=== PATIENT | male | born 1930 | race Caucasian/White ===

== ENCOUNTER 2017-10-24 14:45 | Observation (INO) | payer MEDICARE, OTHER ==
[2017-10-24 15:09] LABS: Base Excess-Venous -7.2 mmol/L (0 (+/- 2.5)); Bicarbonate (HCO3v) 17.3 mmol/L (1.0-85.0); CO2 Tension (PvCO2) 30.7 mmHg (41.0-51.0); Calcium, Ionized 0.95 mmol/L (1.12-1.32); Hemoglobin - Calc 10.4 g/dL (12.0-18.0); Lactate 3.37 mmol/L (0.50-2.20); O2 Tension (PvO2) 50.1 mmHg (35.0-45.0); Potassium 3.7 mmol/L (3.4-4.7); T. Carbon Dioxide 18.3 mmol/L (1.0-85.0); vO2 Saturation-calc 84.3 % (94-98)
[2017-10-24 15:21] LABS: Hemoglobin 12.9 g/dL (14.0-18.0); Mean Corpuscular HGB CONC 33.5 g/dL (32.0-36.0); Mean Platelet Volume 7.1 fL (7.4-10.4); Platelet Count 143 thou/uL (130-400); White Blood Cell (WBC) Count 9.8 thou/uL (4.8-10.8)
--- NOTE | 2017-10-24 15:31 | CT ---
CT OF BRAIN PERFORMED WITHOUT CONTRAST ENHANCEMENT: Date: 10/24/17 HISTORY: Syncopal episode with head injury. COMPARISON: 07/11/06 study, which showed extensive facial trauma. FINDINGS: There is generalized ventricular and sulcal prominence. There are no signs of intracerebral hemorrhag e or extra-axial fluid collections. Mastoid air cells are clear. There is an air fluid level within t he visualized portion of the right maxillary sinus. IMPRESSION: No acute intracranial abnormalities. POS: [facility]
[2017-10-24 15:38] LABS: Band 3 % (5-11); Burr Cells SLIGHT = 2-5 cells (100X) (0-1/hpf); Eosinophils 1 % (0-10); Lymphocytes 23 % (21-51); MDiff Complete? YES; Monocytes 6 % (0-10); Neutrophil 65 % (42-75); Ovalocytes SLIGHT = 2-5 cells (100X) (0-1/hpf); PLT Morphology Comment Appears Adequate; Polychromasia SLIGHT = 2-3 cells (100X) (0-2/hpf); Reactive Lymphocytes 2 % (0-10)
[2017-10-24 15:39] LABS: ALT (SGPT) 20 U/L (8-55); AST (SGOT) 23 U/L (5-34); Albumin 3.5 g/dL (3.4-4.8); Alkaline Phosphatase 48 U/L (40-150); Anion Gap 12 mmol/L (10-20); BUN (Urea Nitrogen) 35 mg/dL (8.4-25.7); Bilirubin, Total 0.9 mg/dL (0.2-1.2); Calc. Creatinine Clearance 0 mL/min (70-130); Calcium 8.3 mg/dL (7.8-10.44); Carbon Dioxide 22 mmol/L (23-31); Chloride 110 mmol/L (98-107); Estimated GFR-MDRD 45; Globulin 2.5 g/dL (2.4-3.5); Glucose 98 mg/dL (83-110); Lipase 22 U/L (8-78); Potassium 4.3 mmol/L (3.5-5.1); Sodium 140 mmol/L (136-145)
[2017-10-24 15:43] LABS: CKMB 1.3 ng/mL (0-6.6); Troponin I 0.014 ng/mL (< 0.028)
--- NOTE | 2017-10-24 15:50 | CT ---
CT ANGIO CHEST AND ABDOMEN PERFORMED WITH IV CONTRAST ENHANCEMENT WITH 3D RECONSTRUCTIONS: Date: 10/24/17 HISTORY: Patient had a syncopal episode and collapse, dizziness, and incontinence with syncope, and hypotensio n. FINDINGS: The lungs are clear of any infiltrative process. There is some linear scarring or atelectasis in the lung bases. No pulmonary nodules. No significant mediastinal or hilar adenopathy. The aorta is tortuous. The ascending aorta is normal in caliber with an AP dimension of approximately 3.7 cm. Just distal to the takeoff of the left subclavian, the aorta is slightly aneurysmal in appea sarah, measuring approximately 4.4 cm, with some fairly prominent thrombus along mainly the posterior wall and calcification of the wall. The aorta tapers more distally to a more normal caliber of appro ximately 2.9 cm. There is no dissection seen associated with these findings. There is evidence of col lateralization of flow related to the left arm injection. The patient does have a left-sided internal defibrillator device. These findings would suggest subclavian or brachiocephalic vein narrowing. The liver, spleen, and pancreas regions appear unremarkable given limitations of angiographic study. Gallbladder has been removed. Right and left adrenal glands are normal in appearance. There is a nonobstructing upper pole punctate right renal calculus. Hypodensities involving both kidneys are statistically almost likely cysts. Th e largest of these is a lower pole right renal cyst measuring approximately 7.0 cm. There is no significant periaortic or mesenteric lymphadenopathy. The abdominal aorta is normal in caliber. There is some moderate atherosclerotic disease seen. There is no aneurysm or dissection demonstrated. Sigmoid diverticulosis is partially visualized on this nohemy dy. IMPRESSION: 1. 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 No dissection demonstr ated. 2. Bilateral renal cysts. 3. Nonobstructing upper pole right renal calculus. 4. Postop cholecystectomy change. 5. Sigmoid diverticulosis. POS: [facility]
[2017-10-24 17:30] LABS: Bilirubin Negative (Negative); Blood, Urine Negative (Negative); Clarity CLEAR (Clear); Glucose, Urine (Dipstick) Negative (Negative); Leukocyte Negative (Negative); Nitrite Negative (Negative); Protein, Urine (Dipstick) Negative (Neg-Trace); Specific Gravity, Urine 1.045 (1.002-1.036); pH, Urine 5.5 (5.0-9.0)
[2017-10-24] MEDS ORDERED: ISOVUE-370 76%-LOCM 1 ML ONE (18:23)
[2017-10-24] MEDS ORDERED: Acetaminophen 325 MG TAB PO PRN (18:39)
[2017-10-24] MEDS ORDERED: Ondansetron ODT 4 MG TAB PO PRN (18:39)
[2017-10-24] MEDS ORDERED: Ondansetron PF 4 MG/2 ML Vial IVP PRN (18:39)
[2017-10-24 18:41] VITALS: BMI 31.3
[2017-10-24 18:51] LABS: Lactic Acid 1.5 mmol/L (0.5-2.2)
[2017-10-24 19:00] LABS: Troponin I 0.011 ng/mL (< 0.028)
[2017-10-24] MEDS ORDERED: Enoxaparin Sodium 30 MG/0.3 ML SYRINGE SC SCH (19:00)
[2017-10-24 19:32] LABS: CKMB 1.4 ng/mL (0-6.6)
[2017-10-24] MEDS: Carvedilol 6.25 MG TAB PO SCH (20:47)
[2017-10-24] MEDS: Famotidine 20 MG TAB PO SCH (20:47)
[2017-10-24] MEDS ORDERED: Simvastatin 40 MG TAB PO SCH (21:00)
[2017-10-25 03:16] LABS: #Lymphocytes 1.8 thou/uL (1.20-3.40); #Neutrophils 7.2 thou/uL (1.40-6.50); %Basophils 0.2 % (0.0-1.0); %Eosinophils 0.3 % (0.0-10.0); %Lymphocytes 17.4 % (21.0-51.0); %Monocytes 10.2 % (0.0-10.0); %Neutrophils 71.9 % (42.0-75.0); Hemoglobin 12.4 g/dL (14.0-18.0); Mean Corpuscular HGB CONC 33.3 g/dL (32.0-36.0); Mean Platelet Volume 7.3 fL (7.4-10.4); Platelet Count 130 thou/uL (130-400); RBC Distribution Width 13.1 % (11.5-14.5); Red Blood Cell (RBC) Count 3.63 mill/uL (4.70-6.10); White Blood Cell (WBC) Count 10.1 thou/uL (4.8-10.8)
[2017-10-25 03:51] LABS: Anion Gap 9 mmol/L (10-20); BUN (Urea Nitrogen) 29 mg/dL (8.4-25.7); Calc. Creatinine Clearance 65 mL/min (70-130); Calcium 8.2 mg/dL (7.8-10.44); Carbon Dioxide 23 mmol/L (23-31); Cardiac Risk 2.8 (Less than 4.5); Chloride 114 mmol/L (98-107); Cholesterol 101 mg/dl (< 200 Desired); Estimated GFR-MDRD 59; Glucose 100 mg/dL (83-110); HDL Cholesterol 36 mg/dL (>60 Neg Risk); LDL Cholesterol, Calculated 52 mg/dL; Potassium 4.4 mmol/L (3.5-5.1); Sodium 142 mmol/L (136-145); Triglycerides 64 mg/dL (Less than 150)
[2017-10-25 03:54] LABS: CKMB 1.1 ng/mL (0-6.6); Troponin I 0.018 ng/mL (< 0.028)
[2017-10-25] MEDS ORDERED: Levothyroxine Sodium 75 MCG TAB PO SCH (06:00)
[2017-10-25] MEDS: Carvedilol 6.25 MG TAB PO SCH (08:29)
[2017-10-25] MEDS: Famotidine 20 MG TAB PO SCH (08:29)
[2017-10-25] MEDS ORDERED: Aspirin 325 MG TAB PO SCH (09:00)
[2017-10-25 12:01] VITALS: BP 106/55; TEMP 98.4
--- NOTE | 2017-10-25 17:00 | HP ---
DATE OF ADMISSION: 10/24/2017 TIME OF SERVICE: 1820 hours. PRIMARY CARE PHYSICIAN: Dr. Gambino. PRIMARY RADAR MECHANIC: Dr. Fonseca. CHIEF COMPLAINT: Syncope. HISTORY OF PRESENT ILLNESS: Mr. Christian is a pleasant 87-year-old male with a history of coronary artery disease status post MD x2, status post CABG x3 and AICD placed in 2008. He also has hypertension, hypothyroidism, hyperlipidemia. 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 He purposely did not take his Lasix today as he was traveling. Patient stated he was feeling somewhat funny and actually pulled over. I asked his girlfriend to drive and as he walked around to the back of the truck, he syncopized and fell out. He did lose control of his bowels, but no tongue biting, no bladder incontinence, no tonic clonic activity and no postictal phase. EMS was called. He was brought to the emergency department for evaluation. On their initial arrival and on arrival to the emergency department, he was hypotensive at 76/62. Rest of his workup was unremarkable. He did receive 4 liters of IV fluids. His blood pressure normalized and we were called for admission. He had no chest pain, shortness of breath, nausea, vomiting, fever, chills, diarrhea, constipation. No other current complaints. PAST MEDICAL HISTORY: 1. Hyperlipidemia. 2. Hypothyroidism. 3. Hypertension, essential. 4. Coronary artery disease status post MD in 2008 x2. PAST SURGICAL HISTORY: 1. AICD placement in 2008. 2. CABG x3 in 2008. 3. Bilateral TKA. 4. Back surgery x3. HOME MEDICATIONS: 1. Zocor 80 mg p.o. at bedtime. 2. Potassium citrate 10 mEq p.o. daily. 3. [place] 3 daily. 4. Levothyroxine 75 mcg daily. 5. Lasix 20 mg p.o. q.a.m. 6. Coreg 6.25 mg p.o. b.i.d. 7. Aspirin 325 mg daily. 8. Centrum Complete 1 tablet daily. ALLERGIES: NKDA. FAMILY HISTORY: Negative for clotting or bleeding disorder. No immune dysfunction. SOCIAL HISTORY: Negative for habits x3 except for occasional social alcohol. REVIEW OF SYSTEMS: All systems reviewed and negative except as stated as per HPI. PHYSICAL EXAMINATION: VITAL SIGNS: Temperature 97.5, pulse 65, blood pressure initially 76/52, respiratory rate 18, sat 98% on room air, blood pressure now 113/75. GENERAL: He is awake. He is alert and he is oriented x3, elderly white male, appears age appropriate, is in no acute distress. HEENT: Normocephalic, atraumatic. Pupils are equal, round, react to light bilaterally. Mucous membranes moist. There was bleeding, no thrush. NECK: Supple. No lymphadenopathy, JVD or thyromegaly. Normal carotid upstrokes. There were no bruits. LUNGS: Clear to auscultation bilaterally without wheezes, rales or rhonchi. CARDIOVASCULAR: Normal cardiac and regular with occasional ectopic beats. He has no audible murmurs. ABDOMEN: Soft, nontender, nondistended, no mass or organomegaly. EXTREMITIES: No signs of clubbing, and no edema. SKIN: Warm, moist, well well-perfused. No rash or lesions. MUSCULOSKELETAL: Normal to inspection. Large joints appear normal. No inflammation or palpable effusions. NEUROLOGIC: Cranial nerves II-XII are grossly intact with no focal neurologic deficits. He has normal speech pattern, 5/5 strength in all 4 extremities. LABORATORY DATA: Sodium 140, potassium 4.3, chloride 110, bicarbonate 22, BUN 37, creatinine 1.45 at baseline looks to be around 1.1-1.3. Glucose 98, calcium 8.3. Liver function is completely within normal limits. CBC showed white count 9.8, hemoglobin 12.9, hematocrit 38.6, platelet count 143,000. BNP is slightly elevated at 350.9. CK-MB normal at 1.3 and troponin I is 0.014. Fecal occult blood testing was negative. ABG appeared to be normal except for a little bit of hypocapnia on the VBG. Lactic acid was 3.4. Repeat pending. RADIOGRAPHIC DATA: CT scan of the brain was normal. CT dissection protocol showed mild dilation of the proximal ascending aorta. Mild aneurysmal dilatation of the proximal ascending aorta. ASSESSMENT AND PLAN: 1. Syncope and collapse: It sounds like he may be dehydrated. He came in hypotensive with a creatinine up approximately 30-40%. He received 4 liters of IV fluids, now normotensive. We will hold his Lasix for right now. We are going to continue his Coreg. AICD interrogation has been done and does not look if there has been no acute events. His last major event was paroxysmal atrial tachycardia/atrial flutter back in 07/2017. We will get serial cardiac biomarkers, watch him on telemetry monitoring and consult Cardiology for their opinion in the morning. This is Dr. Fonseca's patient and we will have come by and see if he is second worker this weekend. 2. Hypertension, patient was hypotensive on arrival. He received IV fluids. He does have an AICD which makes leads me to believe that he has a low EF. His last echo was about 5 months ago. I have not ordered a repeat and will not place him on IV fluids. We will let him eat a regular heart-healthy diet. 3. Hypothyroidism. Continue levothyroxine. 4. Hyperlipidemia, on Zocor.. 5. History of coronary artery disease, without angina. We will watch markers as above. MTDD
--- NOTE | 2017-10-27 11:13 | DIS ---
DATE OF ADMISSION: 10/24/2017 DATE OF DISCHARGE: 10/25/2017. PRIMARY CARE PHYSICIAN: Jasiel Gambino M.D. PRIMARY WIRE THREADER: Cayetano Fonseca M.D. DISCHARGE DIAGNOSIS: Syncope and hypotension. 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 He started feeling somewhat funny, actually pulled over and asked his girlfriend to drive, but when he walked on the back of the truck to change seats , he syncopized and passed out. He did lose control of his bowels, but no tongue biting, no bladder incontinence, no tonic-clonic activity, no postictal phase. EMS was called and came out to the site, was brought to the emergency department for evaluation. He was hypotensive, initially at 76/62. He did receive 4 liters of IV fluids. Blood pressure normalized, but we were called for admission. HOSPITAL COURSE: The patient was seen and examined by me in the emergency department. Labs are reviewed. The patient was examined. His Lasix was held. We will continue his Coreg and AICD interrogation was done in the emergency department, it showed no events. Serial cardiac biomarkers were ordered and telemetry monitoring was done overnight. Overnight, the patient did well. He had no further episodes. His orthostatics were negative. He is feeling much better, back to his baseline. He was restarted on the medicines and discharged home for outpatient followup. PHYSICAL EXAMINATION: The patient was seen and examined on the day of discharge. Discharge plan and disposition were discussed with the patient [id number] at the bedside. DISCHARGE ACTIVITY: Per Cardiopulmonary limits. DISCHARGE DIET: Heart healthy recommended. DISCHARGE CONDITION: Stable. DISPOSITION: He will be discharged home via private vehicle. FOLLOWUP APPOINTMENTS: 1. Primary care physician within a week. 2. Dr. Fonseca within 1-2 weeks. DISCHARGE MEDICATIONS: New medication, Lasix 20 mg p.o. q.a.m., decreased from 40 mg. HOME MEDICATIONS: To continue, 1. Centrum Complete 1 daily. 2. Potassium citrate ER 10 mEq p.o. daily. 3. Fish oil 1400 mg soft gel 1 capsule b.i.d. 4. Synthroid 75 mcg daily 5. Coreg 6.25 mg p.o. b.i.d. 6. Aspirin 325 mg daily. 7. Lipitor 40 mg p.o. daily. Medications to continue. 1. Lasix 40 mg tablets. 2. Valsartan 40 mg tablets. MTDD
--- NOTE | 2017-10-31 14:52 | EKG ---
Test Reason : Blood Pressure : / mmHG Vent. Rate : 062 BPM Atrial Rate : 048 BPM P-R Int : 000 ms QRS Dur : 110 ms QT Int : 408 ms P-R-T Axes : 000 018 -62 degrees QTc Int : 414 ms Electronic atrial pacemaker Inferior infarct , age undetermined Anterior infarct , age undetermined Abnormal ECG Confirmed by DARRELL SHANKAR, CHERIE ([id number]), purchasing expeditor FAISAL KEY ([id number]) on 10/31/2017 2:52:22 PM Referred By: Confirmed By:CHERIE RAMÍREZ MD
== END 2017-10-25 13:02 | disposition home or self-care (01) ==
LOC: ERS 14:45 → 2SW 17:19
PROVIDERS: ADMIT Internal Medicine Infectious Disease; ATTEND Internal Medicine Infectious Disease
DX: R55 Syncope and collapse (principal); I10 Essential (primary) hypertension; E03.9 Hypothyroidism, unspecified; E78.5 Hyperlipidemia, unspecified; I25.10 Atherosclerotic heart disease of native coronary artery without angina pectoris; Z95.1 Presence of aortocoronary bypass graft; Z79.82 Long term (current) use of aspirin; Z79.899 Other long term (current) drug therapy
CPT/HCPCS: 70450; 71275; 80048; 80053; 80061; 81003; 82274; 82330; 82435; 82553 ×3; 82565; 82803; 82947; 83605; 83690; 83735; 83880; 84132; 84295; 84484 ×3; 85014; 85025 ×2; 86850; 86900; 86901; 86920; 93005; 96360; 96372; 99285; G0378; 36415; 36430; J1650

== ENCOUNTER 2017-12-16 10:37 | Emergency (ER) | payer MEDICARE, OTHER ==
--- NOTE | 2017-12-16 12:21 | RAD ---
THREE VIEWS RIGHT ANKLE: Date: 12-16-17 History: Stepped on an electrical cord yesterday and woke up today with unbearable right ankle and fo ot pain. Injury. FINDINGS: Ankle mortise is congruent. There is no fracture or dislocation seen. A plantar calcaneal enthesophyt e is identified. IMPRESSION: No acute osseous abnormality right ankle. POS: [facility]
--- NOTE | 2017-12-16 12:22 | RAD ---
RIGHT FOOT RADIOGRAPH SERIES: INDICATIONS: Injury. Pain. 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 Punctate densities and a larger radiopaque densit y project about the remnant first ray. There is soft tissue prominence. The residual digits are hel d in flexion, limiting assessment. Enthesophyte formation is seen at the calcaneus, and there are sc attered osteophytes of the right foot. IMPRESSION: 1. No acute fracture, right foot. 2. 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 3. About the residual first ray, there are multiple radiopaque densities, some of which may be posto perative, given the prior amputation, although embedded foreign bodies not related to prior surgery a re not excluded. Recommend clinical correlation. POS: [facility]
[2017-12-16] MEDS ORDERED: HYDROcodone/Acetaminophen 5/325 mg Tablet ONE (12:34)
== END 2017-12-16 13:47 | disposition home or self-care (01) ==
LOC: ERS 10:37
DX: M79.671 Pain in right foot (principal); I25.2 Old myocardial infarction; I10 Essential (primary) hypertension; Z79.82 Long term (current) use of aspirin; Z79.899 Other long term (current) drug therapy

== ENCOUNTER 2019-03-15 10:25 | Outpatient (CLI) | payer MEDICARE, OTHER ==
[2019-03-15 13:38] LABS: Hemoglobin 13.3 g/dL (14.0-18.0); Mean Corpuscular HGB CONC 32.4 g/dL (32.0-36.0); Mean Corpuscular Hemoglobin 32.2 pg (27.0-31.0); Mean Corpuscular Volume 99.4 fL (78.0-98.0); Mean Platelet Volume 7.6 fL (7.4-10.4); Platelet Count 139 thou/uL (130-400); RBC Distribution Width 12.7 % (11.5-14.5); Red Blood Cell (RBC) Count 4.13 mill/uL (4.70-6.10); White Blood Cell (WBC) Count 7.9 thou/uL (4.8-10.8)
[2019-03-15 13:42] LABS: INR-International Normal Ratio 1.3; PTT 32.3 SEC (22.9-36.1); Prothrombin Time 15.8 SEC (12.0-14.7)
[2019-03-15 14:00] LABS: Anion Gap 16 mmol/L (10-20); BUN (Urea Nitrogen) 24 mg/dL (8.4-25.7); Calc. Creatinine Clearance 0 mL/min (70-130); Calcium 9.4 mg/dL (7.8-10.44); Carbon Dioxide 23 mmol/L (23-31); Chloride 108 mmol/L (98-107); Estimated GFR-MDRD 54; Glucose 89 mg/dL (83-110); Potassium 4.7 mmol/L (3.5-5.1); Sodium 142 mmol/L (136-145)
== END 2019-03-15 10:26 | disposition home or self-care (01) ==
LOC: LABBT 10:25 → EDSTATUS 13:00
PROVIDERS: ATTEND Internal Medicine Cardiovascular Disease
DX: Z01.818 Encounter for other preprocedural examination (principal); I48.91 Unspecified atrial fibrillation
CPT/HCPCS: 80048; 85027; 85610; 85730; 93005; 93010

== ENCOUNTER → 2019-03-24 | Day surgery (SDC) | payer MEDICARE, OTHER ==
[2019-03-15 12:53] VITALS: BMI 29.4
[~2019-03-24] MED LIST: PROPOFOL 20 ML ONE
--- NOTE | 2019-03-24 17:04 | EKG ---
Test Reason : POST CARDIOVERSION Blood Pressure : / mmHG Vent. Rate : 071 BPM Atrial Rate : 071 BPM P-R Int : 366 ms QRS Dur : 122 ms QT Int : 424 ms P-R-T Axes : 049 004 -67 degrees QTc Int : 460 ms Sinus rhythm with 1st degree A-V block with Premature atrial complexes Non-specific intra-ventricular conduction delay Inferior infarct , age undetermined Abnormal ECG Confirmed by GAVINO MUSTAFA ([id number]) on 03/24/2019 5:04:21 PM Referred By: DEANNA Confirmed By:GAVINO MUSTAFA
--- NOTE | 2019-03-24 17:09 | OP ---
DATE OF PROCEDURE: 03/24/2019 PROCEDURE PERFORMED: Electrical cardioversion. REASON FOR PROCEDURE: Mr. Christian is a pleasant 89-year-old gentleman with history of chronic systolic congestive heart failure, LVEF of 30% to 35%, dual-chamber ICD in place post CTI ablation in April 2008, now here with atrial fibrillation. He has been anticoagulated with Eliquis over a month. DESCRIPTION OF PROCEDURE: The patient received propofol by anesthesia specialist. After adequate level of sedation achieved, a synchronized 150-joule shock promptly converted the patient back to sinus rhythm. First-degree AV block noted. The rates are at 71 beats per minute. ICD was checked postprocedure, found to be in adequate function. CONCLUSION: Successful cardioversion. PLAN: Continue anticoagulation. Monitor for recurrent arrhythmias. Consider an antiarrhythmic agent if symptomatic atrial fibrillation recurs. Job ID: [id number]
== END ==
LOC: CCL 08:21
PROVIDERS: ATTEND Internal Medicine Cardiovascular Disease
PROC: 5A2204Z Restoration of Cardiac Rhythm, Single (ICD-10-PCS; principal; 2019-03-24)
DX: I48.19 Other persistent atrial fibrillation (principal); I11.0 Hypertensive heart disease with heart failure; I50.22 Chronic systolic (congestive) heart failure; I25.5 Ischemic cardiomyopathy; M19.90 Unspecified osteoarthritis, unspecified site; I25.2 Old myocardial infarction; I48.3 Typical atrial flutter; I25.10 Atherosclerotic heart disease of native coronary artery without angina pectoris; E03.9 Hypothyroidism, unspecified; Z79.01 Long term (current) use of anticoagulants; Z79.82 Long term (current) use of aspirin; Z79.899 Other long term (current) drug therapy; Z95.1 Presence of aortocoronary bypass graft; Z95.810 Presence of automatic (implantable) cardiac defibrillator
CPT/HCPCS: 92960; 93005; 93010; J2704

== ENCOUNTER 2019-07-28 08:56 | Outpatient (CLI) | payer MEDICARE, OTHER ==
--- NOTE | 2019-07-28 09:29 | ULT ---
GALLBLADDER ULTRASOUND: HISTORY:Abnormal liver enzymes FINDINGS: The liver demonstrates homogeneous echotexture without focal mass or intrahepatic biliary ductal dila tation. The patient is post cholecystectomy. The pancreas is not well visualized due to overlying bowel gas. There are cysts in the right kidney, the largest is in the inferior pole measuring 7.5 cm. The common duct [id number] in diameter. No free fluid is seen in the Mendoza's pouch. IMPRESSION: Right renal cysts
== END 2019-07-28 08:57 | disposition home or self-care (01) ==
LOC: ULT 08:56
PROVIDERS: ATTEND Internal Medicine Cardiovascular Disease
DX: R74.8 Abnormal levels of other serum enzymes (principal); N28.1 Cyst of kidney, acquired
CPT/HCPCS: 76705